=== PATIENT | female | born 1960 | race Caucasian/White ===

== ENCOUNTER 2024-04-15 22:35 | Outpatient (REF) | payer BC, SELFPAY ==
[2024-04-15 15:39] LABS: Anion Gap 8.6 mmol/L (3-11); BUN 31 mg/dL (7-18); CO2 29.4 mmol/L (21.0-32.0); CREATININE 1.1 mg/dL (0.55-1.02); Calcium 9.8 mg/dL (8.5-10.1); Calculated LDL 41 mg/dL (<100); Chloride 105 mmol/L (98-107); Cholesterol 111 mg/dL (<200); Estimated GFR 56.46 (mL/min/1.73m2); Glucose 187 mg/dL (74-106); HDL Cholesterol 45 mg/dL (40-60); Potassium 4.9 mmol/L (3.5-5.1); Sodium 143 mmol/L (136-145); Triglyceride 128 mg/dL (<150)
[2024-04-15 17:22] LABS: COMMENT (LAB VIEW ONLY) 47.13 mg/dL; Microalb ug/mg Crea 92.5 ug/mg Cr
== END 2024-04-15 22:36 | disposition home or self-care (01) ==
LOC: NCHCN 22:35
PROVIDERS: PCP Family Medicine; Visit Provider Family Medicine
DX: E78.5 Hyperlipidemia, unspecified (principal); I10 Essential (primary) hypertension; E11.9 Type 2 diabetes mellitus without complications
CPT/HCPCS: 80048; 80061; 82043; 82570